=== PATIENT | male | born 1955 | race Caucasian/White ===

== ENCOUNTER 2022-03-05 12:46 | Emergency (ER) | payer OTHER ==
[~2022-03-05] VITALS: Ht 170.2 cm; Wt 74.8 kg
[~2022-03-05 12:46] MED LIST: CELEBREX100 MG PO; CIPRO500 MG PO; INTESTINEX1 CA1 PO
[2022-03-05] MEDS ORDERED: DIOVAN40 MG PO (13:36)
[2022-03-05] MEDS ORDERED: ATORVASTATIN CA10 MG PO (13:36)
[2022-03-05] MEDS ORDERED: FENOFIBRATE160 MG (13:37)
[2022-03-05] MEDS ORDERED: ZIAC 2.5-6.251 EACH (13:37)
== END 2022-03-05 15:37 | disposition home or self-care (01) ==
LOC: ER 12:46
DX: R31.0 Gross hematuria (principal)

== ENCOUNTER 2025-03-07 06:00 | Day surgery (SDC) | payer OTHER ==
[~2025-03-07 06:00] MED LIST changes: +ATORVASTATIN CA10 MG PO; +DIOVAN160 M1; +DIOVAN40 MG PO; +FENOFIBRATE160 MG; +ZIAC 2.5-6.251 EACH
[2025-03-07] MEDS ORDERED: CEFAZOLIN SODIUM 1,000 MG VIAL ONE (07:48)
[2025-03-07] MEDS ORDERED: SUGAMMADEX SODIUM 200 MG/2 ML VIAL IV ONE (09:26)
[2025-03-07] MEDS ORDERED: KETOROLAC TROMETHAMINE 30 MG VIAL ONE (09:26)
[2025-03-07] MEDS ORDERED: BUPIVACAINE HCL/MPF 0.5% 30ML VIAL ONE (09:26)
[2025-03-07] MEDS ORDERED: DEXAMETHASONE SODIUM PHOSPHATE 4 MG/ML VIAL ONE (10:26)
[2025-03-07] MEDS ORDERED: FAMOTIDINE/PF 20 MG/2 ML VIAL ONE (10:26)
[2025-03-07] MEDS ORDERED: LIDOCAINE HCL 1% 20 ML VIAL IJ ONE (10:30)
== END 2025-03-07 13:15 | disposition home or self-care (01) ==
LOC: CIR.AMB 06:00
PROVIDERS: ATTEND Orthopaedic Surgery
DX: M75.41 Impingement syndrome of right shoulder (principal); M75.121 Complete rotator cuff tear or rupture of right shoulder, not specified as traumatic; Z91.018 Allergy to other foods